=== PATIENT | female | born 1970 | race Caucasian/White ===

== ENCOUNTER → 2016-11-14 | Outpatient (REF) | LOC: WSOH 09:23 | DX: Z02.89 Encounter for other administrative examinations (principal) ==

== ENCOUNTER → 2018-04-07 | Outpatient (CLI) | payer SELFPAY | LOC: COL.RAD 10:10 | DX: M89.8X7 Other specified disorders of bone, ankle and foot (principal); M25.471 Effusion, right ankle; Z87.81 Personal history of (healed) traumatic fracture ==

== ENCOUNTER 2019-02-26 14:45 | Outpatient (RCR) | payer BC | END 2019-04-12 | disposition still patient (30) | LOC: MKS.ESL.PT | DX: S92.041D Displaced other fracture of tuberosity of right calcaneus, subsequent encounter for fracture with routine healing (principal); S92.011 Displaced fracture of body of right calcaneus; Z72.0 Tobacco use; Z91.19 Patient's noncompliance with other medical treatment and regimen; Z98.890 Other specified postprocedural states ==